=== PATIENT | female | born 2000 | race American Indian/Alaskan Native ===

== ENCOUNTER 2022-06-28 13:38 | Emergency (ER) | payer MEDICAID ==
[2022-06-28 13:48] VITALS: BP 122/74
== END 2022-06-28 19:30 | disposition left against medical advice (07) ==
LOC: ED 13:38
DX: H10.029 Other mucopurulent conjunctivitis, unspecified eye (principal); Z53.21 Procedure and treatment not carried out due to patient leaving prior to being seen by health care provider